=== PATIENT | female | born 1955 | race Caucasian/White ===

== ENCOUNTER 2018-02-28 12:52 | Inpatient (IN) | payer OTHER, MEDICARE ==
[2018-02-28 13:01] VITALS: BMI 17.6
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
[2018-02-28] MEDS ORDERED: ONDANSETRON 4 MG/2 ML VIAL IVPB ONE (13:22)
[2018-02-28] MEDS ORDERED: ACETAMINOPHEN 1000 MG/100 ML VIAL (NON FORMULARY) IVPB ONE (13:22)
[2018-02-28] MEDS ORDERED: SODIUM CHLORIDE 1,000 ML IV STA ×2 (13:22→15:25)
[2018-02-28] MEDS ORDERED: ONDANSETRON 4 MG/2 ML VIAL ONE ×2 (13:31→19:17)
[2018-02-28] MEDS ORDERED: ACETAMINOPHEN INJECTION 100 ML IVPB ONE (13:31)
[2018-02-28 14:09] LABS: EOS % 0.1 % (0-4.5)
[2018-02-28 14:17] LABS: ALBUMIN 4.4 g/dl (3.5-5.0); ALK PHOS 41 U/L (32-92); ANION GAP 13 MMOL/L (8-16); BILIRUBIN,TOTAL 1.8 mg/dl (0.2-1.0); BLOOD UREA NITROGEN 14 mg/dl (7-18); CALCIUM 9.3 mg/dl (8.4-10.2); CHLORIDE 92 mmol/L (98-107); CO2 23 mmol/L (22-28); CREATININE 0.7 mg/dl (0.6-1.3); GLUCOSE,RANDOM 76 mg/dl (74-106); POTASSIUM 3.2 mmol/L (3.5-5.1); SGOT/AST 17 U/L (10-42); SGPT/ALT 10 U/L (10-40); SODIUM 128 mmol/L (136-145); TOT PROT 6.6 g/dl (6.4-8.3)
[2018-02-28] MEDS ORDERED: morphine CARPU-JECT 2 MG/1 ML DISP.SYRIN IVPUSH ONE (14:27)
--- NOTE | 2018-02-28 14:27 | PDOC ---
Attending Attestation - Resident Resident Name: Sa Queenieira - ED Attending Attestation I have performed the following: I have examined & evaluated the patient, The case was reviewed & discussed with the resident, I agree w/resident's findings & plan - HPI HPI: 02/28/18 14:25 63-year-old female with history of intermittent right inguinal discomfort/ swelling presumed to be hernia related by her PCP Dr. Agosto in the past now presents with 3 days of persistent swelling and pain to the right inguinal region associated with intractable nausea/vomiting/inability to tolerate by mouth and decreased rectal output. No fevers or chills, mild generalized abdominal discomfort, no urinary complaints. - Physicial Exam PE: 02/28/18 14:26 Vital signs are within normal limits, afebrile well-appearing and pleasant, dry mucosa Heart is regular, lungs are clear Abdomen is soft and nondistended, discomfort to palpation throughout the lower abdomen greatest near the right lower quadrants, positive rebound but no guarding, palpable nonreducible right inguinal hernia that is tender, no overlying skin color change. No right upper quadrant tenderness, no right CVA tenderness - Medical Decision Making 02/28/18 14:27 63-year-old female with presentation concerning for incarcerated hernia, hemodynamically stable without evidence of sepsis or diffuse peritoneal findings. Check labs EKG IV fluid hydration, antiemetic, pain control CT of the abdomen and pelvis General surgery consult Admission 02/28/18 16:57 incarcerated hernia with SBO on CTAP. Admitted to [facility] with Surgery (Carlos Eduardo) consulted. OR team ready at [facility], arranging transfer to OR for Dr. Thibodeaux. IVF and K infusing via IV. Heart Score/ECG Review #1 ECG reviewed & interpreted by me at: 14:56 General ECG Interpretation: Sinus Rhythm, Normal Rate (69), Normal Intervals ( qtc 454), No acute ischemic changes (inf/lateral q waves without st/t changes)
[2018-02-28 14:29] LABS: BASO % 0.3 % (0-2.0); HEMATOCRIT 44.4 % (32.4-45.2); MCH 31.5 pg (25.7-33.7); MCHC 33.7 g/dl (32.0-36.0); MEAN CELL VOLUME 93.3 fl (80-96); MEAN PLT VOLUME 9.5 fl (7.5-11.1); MONO % 10.2 % (3.8-10.2); NEUT % 78.4 % (42.8-82.8); PLATELET COUNT 342 K/MM3 (134-434); RBC 4.76 M/mm3 (3.60-5.2); RDW 12.9 % (11.6-15.6); WHITE BLOOD COUNT 11.1 K/mm3 (4.0-10.8)
[2018-02-28 14:34] LABS: INR 1.06 (0.82-1.09); PROTHROMBIN TIME (PATIENT) 11.9 SEC (10.2-13.0)
[2018-02-28] MEDS ORDERED: morphine SULFATE 4 MG/ML VIAL ONE (14:48)
[2018-02-28] MEDS ORDERED: LIDOCAINE HCL 2% JELLY (5 ML/TUBE) ONE (15:41)
[2018-02-28] MEDS ORDERED: LIDOCAINE HCL 2% JELLY (30 ML/TUBE) TP ONE (15:42)
[2018-02-28] MEDS ORDERED: morphine CARPU-JECT 2 MG/1 ML DISP.SYRIN IVPUSH PRN ×2 (16:04→17:19)
[2018-02-28] MEDS ORDERED: ONDANSETRON 4 MG/2 ML VIAL IVPUSH PRN ×3 (16:04→22:21)
[2018-02-28] MEDS ORDERED: ACETAMINOPHEN 1000 MG/100 ML VIAL (NON FORMULARY) IVPB PRN ×4 (16:10→22:21)
[2018-02-28 16:21] LABS: URINE APPEARANCE Clear; URINE BILIRUBIN Negative (NEGATIVE); URINE COLOR Yellow; URINE GLUCOSE (UA) Negative (NEGATIVE); URINE KETONE 4+ (NEGATIVE); URINE LEUK ESTERASE 1+ (NEGATIVE); URINE NITRITE Negative (NEGATIVE); URINE PROTEIN Negative (NEGATIVE); URINE UROBILINOGEN 0.2 (0.2-1.0)
[2018-02-28] MEDS ORDERED: SODIUM CHLORIDE 0.9%/KCL 20 MEQ/1,000 ML INFUS.BAG IV SCH ×2 (16:30→22:15)
[2018-02-28 16:36] LABS: EPI CELLS FEW /HPF
[2018-02-28 16:37] LABS: URINE BACTERIA FEW /hpf (NEGATIVE)
[2018-02-28] MEDS ORDERED: KCL 10 MEQ IVPB 10 MEQ/100 ML INFUS.BAG IVPB ONE (16:47)
[2018-02-28] MEDS: KCL 10 MEQ IVPB 10 MEQ/100 ML INFUS.BAG IVPB SCH (16:58)
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
[2018-02-28] MEDS ORDERED: SODIUM CHLORIDE 1,000 ML IV ONE (17:13)
[2018-02-28] MEDS ORDERED: MIDAZOLAM HCL 2 MG/2 ML SINGLE DOSE VIAL ONE (18:35)
[2018-02-28] MEDS ORDERED: LIDOCAINE HCL/PF 2% SDV 5ML VIAL ONE (19:17)
[2018-02-28] MEDS ORDERED: DEXAMETHASONE SOD PHOSPHATE 4 MG/1 ML VIAL ONE (19:17)
[2018-02-28] MEDS ORDERED: ETOMIDATE 20 MG/10 ML AMPUL IVPUSH ONE (19:18)
[2018-02-28] MEDS ORDERED: ROCURONIUM BROMIDE 50 MG/5 ML VIAL ONE (19:20)
[2018-02-28] MEDS ORDERED: NEOSTIGMINE METHYLSULFATE 0.5 MG/ML - 10 ML MDV ONE (20:51)
[2018-02-28] MEDS ORDERED: GLYCOPYRROLATE 0.2 MG/1 ML VIAL ONE (20:52)
--- NOTE | 2018-02-28 21:46 | OP ---
Operative Note - Note: Operative Date: 02/28/18 Pre-Operative Diagnosis: incarcerated right inguinal hernia with small bowel obstruction Operation: incarcerated right femoral hernia repair Findings: right femoral hernia with incarcerated preperitoneal fat and hernia sac; inguinal ligament divided to access peritoneal cavity and examine small bowel - small knuckle of bowel wall identified as inflamed with transition point but viable (Campbell's hernia), no resection done; sac doubly ligated, excised, sent for path; ligament repaired and sewn to adjacent tissue Post-Operative Diagnosis: Other (incarcerated right femoral hernia with small bowel obstruction) Surgeon: Ian Thibodeaux Manufacturing Test Engineer: Tim Howard Anesthesiologist/COAL FEEDER OPERATOR: Atilio Sam Anesthesia: General Specimens Removed: hernia sac to pathology Estimated Blood Loss (mls): 5 Drains & Tubes with Location: Mijares removed at end of case, NGT preop Drains, Volume Out (mls): 450 (UOP) Fluid Volume Replaced (mls): 900 (crystalloid) Operative Report Dictated: Yes
[2018-02-28] MEDS ORDERED: IBUPROFEN 800 MG/8 ML IJ IVPB ONE ×2 (22:01→22:11)
[2018-02-28] MEDS ORDERED: MORPHINE SULFATE 2 MG/ML VIAL IVPUSH PRN (22:21)
[2018-03-01] MEDS: SODIUM CHLORIDE 0.9%/KCL 20 MEQ/1,000 ML INFUS.BAG IV SCH ×2 (00:32→04:58)
[2018-03-01] MEDS: KCL 10 MEQ IVPB 10 MEQ/100 ML INFUS.BAG IVPB SCH ×2 (02:02→02:03)
[2018-03-01] MEDS ORDERED: IBUPROFEN 800 MG/8 ML IJ IVPB PRN ×2 (06:00)
[2018-03-01 07:44] LABS: BASO % 0.1 % (0-2.0); HEMATOCRIT 35.6 % (32.4-45.2); HEMOGLOBIN 12.1 GM/dL (10.7-15.3); LYMPH % 5.6 % (8-40); MCH 31.4 pg (25.7-33.7); MEAN CELL VOLUME 92.6 fl (80-96); MEAN PLT VOLUME 9.1 fl (7.5-11.1); MONO % 11.2 % (3.8-10.2); NEUT % 83.1 % (42.8-82.8); PLATELET COUNT 255 K/MM3 (134-434); RBC 3.85 M/mm3 (3.60-5.2); RDW 13.4 % (11.6-15.6); WHITE BLOOD COUNT 10.5 K/mm3 (4.0-10.0)
[2018-03-01 07:51] LABS: ANION GAP 14 MMOL/L (8-16); BLOOD UREA NITROGEN 9 mg/dL (7-18); CALCIUM 7.6 mg/dL (8.5-10.1); CHLORIDE 109 mmol/L (98-107); CO2 20 mmol/L (21-32); CREATININE 0.3 mg/dL (0.55-1.02); GLUCOSE,RANDOM 78 mg/dL (74-106); PHOSPHOROUS 2.5 mg/dL (2.5-4.9); POTASSIUM 3.9 mmol/L (3.5-5.1); SODIUM 143 mmol/L (136-145)
[2018-03-01] MEDS ORDERED: PANTOPRAZOLE SODIUM 40 MG VIAL IVPB SCH (10:00)
--- NOTE | 2018-03-01 11:02 | PN ---
Progress Note, Physician Chief Complaint: s/p incarcerated hernia repair under general anesthesia History of Present Illness: post op day one - Current Medication List Current Medications: Active Medications Acetaminophen (Ofirmev Injection -) 1,000 mg IVPB Q6H PRN PRN Reason: PAIN LEVEL 4 - 6 Metronidazole (Flagyl 500mg Premixed Ivpb -) 500 mg in 100 mls @ 100 mls/hr IVPB Q8H-IV MERLY Stop: 03/01/18 18:59 Last Admin: 03/01/18 09:55 Dose: 100 mls/hr Levofloxacin (Levaquin 500 Mg Premixed Ivpb -) 500 mg in 100 mls @ 100 mls/hr IVPB ONCE ONE; Protocol Stop: 03/01/18 18:59 Potassium Chloride/Sodium Chloride (Ns+20 Meq Kcl -) 20 meq in 1,000 mls @ 125 mls/hr IV ASDIR MERLY Last Admin: 03/01/18 04:58 Dose: 125 mls/hr Ibuprofen (Caldolor Injection -) 600 mg IVPB Q6H PRN PRN Reason: PAIN LEVEL 6-10 Morphine Sulfate (Morphine Sulfate) 2 mg IVPUSH Q3H PRN PRN Reason: PAIN LEVEL 7 - 10 Ondansetron HCl (Zofran Injection) 4 mg IVPUSH Q4H PRN PRN Reason: NAUSEA - Objective Vital Signs: Vital Signs Temperature 98.2 F 03/01/18 06:55 Pulse Rate 92 H 03/01/18 06:55 Respiratory Rate 20 03/01/18 07:36 Blood Pressure 101/50 03/01/18 06:55 O2 Sat by Pulse Oximetry (%) 99 03/01/18 07:36 Constitutional: Yes: Well Nourished Cardiovascular: Yes: WNL Respiratory: Yes: WNL Gastrointestinal: Yes: WNL Labs: CBC, BMP 03/01/18 06:30 03/01/18 06:30 INR, PTT INR 1.06 (0.82-1.09) 02/28/18 13:27 Assessment/Plan no adverse effect from anesthetic, pain controlled, still npo, will sign off care at this time
[2018-03-01] MEDS ORDERED: MORPHINE SULFATE 2 MG/ML VIAL IVPUSH PRN (17:52)
--- NOTE | 2018-03-01 17:52 | PN ---
Progress Note, Physician Chief Complaint: R groin pain, bulge History of Present Illness: Pt s/p incarcerated right femoral hernia repair with associated SBO last night. Had trouble sleeping, but pain has been tolerable - had IV ibuprofen in PACU and once earlier today only. Has been up to bathroom, but not ambulating in halls yet, was out to chair. Using IS, gets ~1250ml. c/o dry eyes, requested artificial tears/eyedrops, which help. Thirsty and hungry. Labs are better this morning. Antibiotics done tonight. No flatus or BM yet, but no nausea, no distention. - Current Medication List Current Medications: Active Medications Acetaminophen (Ofirmev Injection -) 1,000 mg IVPB Q6H PRN PRN Reason: PAIN LEVEL 4 - 6 Artificial Tears (Artificial Tears) 1 drop OU Q6H PRN PRN Reason: DRY EYES Metronidazole (Flagyl 500mg Premixed Ivpb -) 500 mg in 100 mls @ 100 mls/hr IVPB Q8H-IV MERLY Stop: 03/01/18 18:59 Last Admin: 03/01/18 17:04 Dose: 100 mls/hr Levofloxacin (Levaquin 500 Mg Premixed Ivpb -) 500 mg in 100 mls @ 100 mls/hr IVPB ONCE ONE; Protocol Stop: 03/01/18 18:59 Potassium Chloride/Sodium Chloride (Ns+20 Meq Kcl -) 20 meq in 1,000 mls @ 125 mls/hr IV ASDIR MERLY Last Admin: 03/01/18 04:58 Dose: 125 mls/hr Ibuprofen (Caldolor Injection -) 600 mg IVPB Q6H PRN PRN Reason: PAIN LEVEL 6-10 Last Admin: 03/01/18 12:17 Dose: 600 mg Morphine Sulfate (Morphine Sulfate) 2 mg IVPUSH Q3H PRN PRN Reason: PAIN LEVEL 7 - 10 Ondansetron HCl (Zofran Injection) 4 mg IVPUSH Q4H PRN PRN Reason: NAUSEA - Objective Vital Signs: Vital Signs Temperature 98 F 03/01/18 16:15 Pulse Rate 68 03/01/18 16:15 Respiratory Rate 20 03/01/18 16:15 Blood Pressure 124/68 03/01/18 16:15 O2 Sat by Pulse Oximetry (%) 98 03/01/18 09:00 Constitutional: Yes: No Distress, Calm, Thin Eyes: Yes: Conjunctiva Clear, EOM Intact HENT: Yes: Atraumatic, Normocephalic, Other (NGT in place - clamped to itself at bedside) Cardiovascular: Yes: Regular Rate and Rhythm, Murmur Respiratory: Yes: Regular, CTA Bilaterally Gastrointestinal: Yes: Soft, Hypoactive Bowel Sounds, Tenderness (mild RLQ and incisional, no R/G). No: Distention Genitourinary: No: Mijares Present, Incontinence Musculoskeletal: Yes: Back Pain (chronic, and stiffness). No: Joint Swelling Extremities: Yes: Other (SCD's in place BLE). No: Cool, Cyanosis Integumentary: Yes: Incision (R groin, dressed). No: Jaundice, Rash Wound/Incision: Yes: Dressing Dry and Intact. No: Dressing Removed Neurological: Yes: Alert, Oriented Labs: CBC, BMP 03/01/18 06:30 03/01/18 06:30 Mg, Phos normal Na, Cl, K improved Problem List - Problems (1) Inguinal hernia of right side with obstruction and without gangrene Assessment/Plan: s/p right incarcerated femoral hernia repair with associated SBO overall doing well, no flatus yet continue NPO/IVF with ice chips and meds ok, clamped NGT pain meds prn - primarily nonnarcotic PO meds DVT prophylaxis periop antibiotics to finish tonight encourage IS/OOB/ambulation await resumption of bowel function likely NG out in am, clears when flatus with slow diet advancement Code(s): K40.30 - UNIL INGUINAL HERNIA, W OBST, W/O GANGR, NOT SPCF RECUR (2) Hypokalemia Assessment/Plan: resolved Code(s): E87.6 - HYPOKALEMIA (3) Dehydration Assessment/Plan: much improved, voiding ok will change to maintenance IV fluids ice chips/sips with meds allowed Code(s): E86.0 - DEHYDRATION (4) Nausea and vomiting Assessment/Plan: resolved NG clamped if ok in am, will likely d/c NGT Code(s): R11.2 - NAUSEA WITH VOMITING, UNSPECIFIED Qualifiers: Vomiting type: unspecified Vomiting Intractability: non-intractable Qualified Code(s): R11.2 - Nausea with vomiting, unspecified (5) Fibromyalgia affecting multiple sites Assessment/Plan: will resume home valium for HS tonight encourage nonnarcotic pain meds prn Code(s): M79.7 - FIBROMYALGIA
[2018-03-01] MEDS: ARTIFICIAL TEARS (POLYVINYL ALCOHOL) OPTH DROPS OU PRN (17:56)
[2018-03-01] MEDS: D5-1/2NS+20 MEQ KCL - 20 MEQ/1,000 ML INFUS.BAG IV SCH (18:19)
[2018-03-01] MEDS: IBUPROFEN 400 MG TABLET (FP) PO PRN (20:13)
[2018-03-01] MEDS ORDERED: diazePAM 5 MG TABLET PO SCH (22:00)
[2018-03-01] MEDS: ACETAMINOPHEN 325 MG TABLET (FP) PO PRN (23:46)
[2018-03-02] MEDS: D5-1/2NS+20 MEQ KCL - 20 MEQ/1,000 ML INFUS.BAG IV SCH (06:28)
[2018-03-02] MEDS: ARTIFICIAL TEARS (POLYVINYL ALCOHOL) OPTH DROPS OU PRN (10:07)
--- NOTE | 2018-03-02 16:29 | PATH ---
Surgical Pathology Report Patient Name: YUDELKA DURON Med. Rec. #: [id number] /Age/Gender: 1955 (Age: 63) / F Account: [id number] Location: [facility] MED/SURG Taken: 02/28/2018 Received: 03/01/2018 Reported: 03/02/2018 Physicians: Juvencio Hu M.D. Specimen(s) Received HERNIA SAC RIGHT FEMORAL HERNIA Clinical History Right incarcerated inguinal hernia with the small bowel obstruction Final Diagnosis RIGHT FEMORAL HERNIA, HERNIA SAC, EXCISION: CONSISTENT WITH HERNIA SAC. FOCAL ACUTE INFLAMMATION PRESENT AT THE ADJACENT ADIPOSE TISSUE. Electronically Signed Zack Bardales M.D. Gross Description Received in formalin labeled "hernia sac right femoral hernia," is a 5.5 x 3.3 x 2.0 cm burris-jalloh portion of fibroadipose tissue with attached fat, consistent with a hernia sac. Designer And Patternmaker sections are submitted in one cassette. /03/01/2018 [facility]/03/01/2018
--- NOTE | 2018-03-02 16:56 | PN ---
Progress Note, Physician Chief Complaint: R groin pain, bulge History of Present Illness: Pt s/p incarcerated right femoral hernia repair with associated SBO. Had trouble sleeping, but pain has been tolerable - not using po pain meds yet; has pain generalized in body and back, not just operative site. Has been up to bathroom, and ambulated in [place], is seen up in chair, examined in bed. Tolerated liquids earlier, milk and soup for lunch. Hungry. Passed flatus this morning, but no BM yet, no nausea, no distention. Pt reports a bad night with nightmare-like visualizations, poor if any sleep, feeling "like I have a mental illness," that "something is wrong in my head." She did take Valium last night. Not sure if her feelings are a holdover from anesthesia or not. - Current Medication List Current Medications: Active Medications Acetaminophen (Tylenol -) 650 mg PO Q6H PRN PRN Reason: PAIN LEVEL 4 - 6 Last Admin: 03/01/18 23:46 Dose: 650 mg Artificial Tears (Artificial Tears) 1 drop OU Q6H PRN PRN Reason: DRY EYES Last Admin: 03/02/18 10:07 Dose: 1 drop Diazepam (Valium -) 5 mg PO HS PRN PRN Reason: sleep Ibuprofen (Motrin -) 400 mg PO Q6H PRN PRN Reason: PAIN LEVEL 6-10 Last Admin: 03/01/18 20:13 Dose: 400 mg Lorazepam (Ativan -) 0.5 mg PO HS PRN PRN Reason: sleep Ondansetron HCl (Zofran Injection) 4 mg IVPUSH Q4H PRN PRN Reason: NAUSEA - Objective Vital Signs: Vital Signs Temperature 98.1 F 03/02/18 14:56 Pulse Rate 69 03/02/18 14:56 Respiratory Rate 18 03/02/18 14:56 Blood Pressure 135/74 03/02/18 14:56 O2 Sat by Pulse Oximetry (%) 100 03/02/18 10:00 Constitutional: Yes: No Distress, Calm, Thin Eyes: Yes: Conjunctiva Clear, EOM Intact HENT: Yes: Atraumatic, Normocephalic Cardiovascular: Yes: Regular Rate and Rhythm, Murmur Respiratory: Yes: Regular, CTA Bilaterally Gastrointestinal: Yes: Soft, Tenderness (mild RLQ/incisional). No: Distention, Hernia Extremities: No: Cool, Cyanosis Integumentary: Yes: Incision (R groin dressed). No: Jaundice, Rash Wound/Incision: Yes: [place] Intact, Dressing Dry and Intact, Dressing Removed ( small gauze and tape left over medial aspect, at red spot between meka) Neurological: Yes: Alert, Oriented Psychiatric: Yes: Alert, Oriented, Other (feeling sad (attended recent family ), not quite herself) Labs: no new labs Problem List - Problems (1) Inguinal hernia of right side with obstruction and without gangrene Assessment/Plan: POD2 s/p right incarcerated femoral hernia repair with associated SBO overall doing well, + flatus this am NG out this morning, tolerating liquids advance to diet for dinner pain meds prn - nonnarcotic PO meds DVT prophylaxis periop antibiotics done yesterday encourage IS/OOB/ambulation incision healing well, no s/s infection if tolerating diet in am, d/c home tomorrow Code(s): K40.30 - UNIL INGUINAL HERNIA, W OBST, W/O GANGR, NOT SPCF RECUR (2) Hypokalemia Assessment/Plan: resolved Code(s): E87.6 - HYPOKALEMIA (3) Dehydration Assessment/Plan: resolved Code(s): E86.0 - DEHYDRATION (4) Nausea and vomiting Assessment/Plan: resolved Code(s): R11.2 - NAUSEA WITH VOMITING, UNSPECIFIED Qualifiers: Vomiting type: unspecified Vomiting Intractability: non-intractable Qualified Code(s): R11.2 - Nausea with vomiting, unspecified (5) Fibromyalgia affecting multiple sites Assessment/Plan: mental state possibly secondary to valium? anesthesia persistent residual effects? consider shorter-acting benzo tonight for sleep first-line -- ativan ordered prn pt states she had bad reaction to Ambien in past and has never tried benadryl for sleep Code(s): M79.7 - FIBROMYALGIA
[2018-03-02] MEDS: IBUPROFEN 400 MG TABLET (FP) PO PRN (18:22)
[2018-03-02] MEDS ORDERED: diazePAM 5 MG TABLET PO PRN (22:00)
[2018-03-02] MEDS ORDERED: LORazepam 0.5 MG TABLET PO PRN (22:00)
[2018-03-03] MEDS: ACETAMINOPHEN 325 MG TABLET (FP) PO PRN (05:13)
[2018-03-03] MEDS ORDERED: PT OWN MED DRAWER 7, Y5N ONE (09:03)
--- NOTE | 2018-03-03 11:38 | DS ---
Physical Examination Vital Signs: Vital Signs Temperature 98.9 F 03/03/18 06:00 Pulse Rate 78 03/03/18 06:00 Respiratory Rate 18 03/03/18 06:00 Blood Pressure 113/71 03/03/18 06:00 O2 Sat by Pulse Oximetry (%) 100 03/02/18 21:00 Findings/Remarks: POD3 s/p incarcerated right femoral hernia repair with associated SBO. Pt seen and examined in room, ambulating, voided, sitting in chair. Tolerated dinner and breakfast. No nausea or fevers. Passing flatus, no BM quite yet, but feels almost ready. Pain managed with PO tylenol prn. Did not sleep well again last night. Did not take any benzo last night. Constitutional: Yes: No Distress, Calm, Thin Eyes: Yes: Conjunctiva Clear, EOM Intact HENT: Yes: Atraumatic, Normocephalic Cardiovascular: Yes: Regular Rate and Rhythm, Murmur Respiratory: Yes: Regular, CTA Bilaterally Gastrointestinal: Yes: Normal Bowel Sounds, Soft, Tenderness (minimal incisional only). No: Distention, Hernia Musculoskeletal: No: Joint Stiffness, Joint Swelling Extremities: No: Cool, Cyanosis Integumentary: Yes: Incision (R groin w/uma). No: Erythema, Rash Wound/Incision: Yes: Clean/Dry, Well Approximated, [place] Intact, Open to air, Dressing Removed (scant dried serous spot on gauze). No: Reddened Neurological: Yes: Alert, Oriented Psychiatric: Yes: Alert, Oriented Labs: no new labs Discharge Summary Reason For Visit: INCARCERATED RIGHT FEMORAL HERNIA WITH SBO Current Active Problems Dehydration (Acute) Femoral hernia of right side with obstruction and without gangrene (Acute) Fibromyalgia affecting multiple sites (Acute) Hypokalemia (Acute) Nausea and vomiting (Acute) Procedures: Principal: incarcerated right femoral hernia repair Hospital Course: 63yo F with fibromyalgia, scoliosis, multiple musculoskeletal issues, right groin hernia, presented to [facility] ER with 3 days of right groin bulge not going down, associated with pain and multiple episodes of N/V. Labs were significant for wbc 11, hypokalemia, hyponatremia, and dehydration. CT showed right groin hernia with loop of bowel and associated small bowel obstruction. She was given IV fluids, had NGT placed, and was transferred to [facility] for OR. At surgery, right femoral hernia was identified, with incarcerated hernia sac and preperitoneal fat; small bowel was eviscerated and examined revealing a mildly inflamed knuckle of bowel wall with transition point (Campbell 's hernia), which did not require resection and was returned to the abdomen, hernia sac ligated, and repair performed without mesh. She received perioperative Levofloxacin and Flagyl for 24 hours. NG was removed on morning of POD2, and she tolerated clears. Diet was advanced and tolerated. She is ambulating, voiding and passing flatus. Pain is controlled with po Tylenol and ibuprofen prn. Incision with uma is c/d/i. She had difficulty with sleeping every night, despite her usual dose of Valium on the night of POD1. She did not take a benzo last night, but still did not sleep much at all. She is discharged home with lifting restrictions to follow up in 2 weeks for staple removal. She will also follow up with PMD Dr. Jairo Esposito. Time spent on discharge: 35 minutes Condition: Good - Instructions Diet, Activity, Other Instructions: Postoperative instructions: You had a right incarcerated femoral hernia repair on 02/28/[address] Ian Thibodeaux of [facility]. Activity: Resume your usual activities gradually, but no heavy exertion or lifting more than 10-15 pounds for 4-6 weeks. You may shower daily, just pat the incision area dry. No bath or swimming until skin incisions have healed. Uma should not need to be recovered with any dressings, unless you have been told otherwise. Eat lightly at first, but advance to your usual diet as tolerated. Pain: For pain, you may use and alternate Tylenol (acetaminophen) 1-2 pills and/ or ibuprofen 200 mg (1-3 pills) every 6 hours each as needed; this means that you can take one OR the other at 3-hour intervals. Do not take more than 3000 mg of acetaminophen in a day. Take medications as prescribed or indicated on the labeling. Follow-up: Call Dr. Thibodeaux's office at [phone] to make your postop appointment (Tuesday in approximately 2 weeks after surgery as advised). Clinic is held in the [facility] on the first floor of [facility]. Call the office if you have: * increasing pain not responsive to pain medication * fever of 101F or higher * vomiting * unusual or increasing bleeding or drainage from wounds * increasing redness or swelling at wound sites Also, see your primary medical doctor within 1-2 weeks. Referrals: Evelyn Alcaraz MD [Primary Care Provider] - Disposition: HOME - Home Medications Comprehensive Discharge Medication List: Ambulatory Orders Diazepam [Valium] 5 mg PO HS 11/27/13 Acetaminophen [Tylenol .Regular Strength -] 650 mg PO Q6H PRN tablet 03/03/18 Ibuprofen [Motrin -] 400 mg PO Q6H PRN tablet 03/03/18
[2018-03-03] MEDS: IBUPROFEN 400 MG TABLET (FP) PO PRN (13:13)
[2018-03-03 13:58] VITALS: BP 157/87; PULSE 90; TEMP 97.9
== END 2018-03-03 15:05 | disposition home or self-care (01) | DRG 351 ==
LOC: FER 12:52 → JSAMEDAYSX 19:00 → J8W 23:07
PROVIDERS: ADMIT Surgery; ATTEND Surgery
PROC: 0YQ50ZZ Repair Right Inguinal Region, Open Approach (ICD-10-PCS; principal; 2018-02-28 18:30)
DX: K40.30 Unilateral inguinal hernia, with obstruction, without gangrene, not specified as recurrent (principal); E87.1 Hypo-osmolality and hyponatremia; E87.6 Hypokalemia; E86.0 Dehydration; M79.7 Fibromyalgia; R11.2 Nausea with vomiting, unspecified
CPT/HCPCS: 36415; 71045-TC-FY; 74177-TC; 80048; 80053; 81003; 81015; 83605; 83690; 83735; 84100; 85025; 85610; 85730; 86850; 86900; 86901; 88302-TC; 94760; 99285-25; J0131; J7030

== ENCOUNTER 2018-11-09 21:25 | Emergency (ER) | payer OTHER, MEDICARE ==
[2018-11-09 21:35] VITALS: BP 118/84; PULSE 68; TEMP 98.8; BMI 19.5
[2018-11-09] MEDS ORDERED: KETOROLAC TROMETHAMINE 30 MG/1 ML VIAL IVPUSH ONE (21:54)
[2018-11-09] MEDS ORDERED: KETOROLAC TROMETHAMINE 30 MG/1 ML VIAL ONE (21:57)
[2018-11-09] MEDS ORDERED: SODIUM CHLORIDE 1,000 ML IV SCH (22:00)
[2018-11-09 22:12] LABS: BASO % 0.4 % (0-2.0); EOS % 0.6 % (0-4.5); HEMATOCRIT 42.5 % (32.4-45.2); LYMPH % 9.5 % (8-40); MCH 30.9 pg (25.7-33.7); MEAN CELL VOLUME 93.6 fl (80-96); MONO % 5.3 % (3.8-10.2); NEUT % 84.2 % (42.8-82.8); PLATELET COUNT 366 K/MM3 (134-434); RBC 4.54 M/mm3 (3.60-5.2); WHITE BLOOD COUNT 10.5 K/mm3 (4.0-10.8)
[2018-11-09 22:21] LABS: ALBUMIN 4.3 g/dl (3.4-5.0); ALK PHOS 60 U/L (45-117); ANION GAP 16 MMOL/L (8-16); BILIRUBIN,TOTAL < 0.3 mg/dl (0.2-1); BLOOD UREA NITROGEN 14 mg/dl (7-18); CALCIUM 9.9 mg/dl (8.5-10); CHLORIDE 98 mmol/L (98-107); CO2 26 mmol/L (21-32); CREATININE 0.8 mg/dl (0.55-1.3); GLUCOSE,RANDOM 110 mg/dl (74-106); POTASSIUM 3.7 mmol/L (3.5-5.1); SGOT/AST 21 U/L (15-37); SGPT/ALT 13 U/L (13-61); SODIUM 140 mmol/L (136-145); TOT PROT 6.9 g/dl (6.4-8.2)
[2018-11-10] MEDS ORDERED: MAGNESIUM CITRATE 300 ML BOTTLE PO ONE (00:43)
--- NOTE | 2018-11-10 00:44 | PDOC ---
Documentation entered by Joe Cantrell SCRIBE, acting as scribe for Paul Reyna MD. Paul Reyna MD: This documentation has been prepared by the Tamia larose Juan Manue, SCRIBE, under my direction and personally reviewed by me in its entirety. I confirm that the documentation accurately reflects all work, treatment, procedures, and medical decision making performed by me. History of Present Illness - General Chief Complaint: Pain, Acute Stated Complaint: ABDOMINAL PAIN History Source: Patient, Old Records Exam Limitations: No Limitations - History of Present Illness Initial Comments: 11/09/18 22:00 The patient is a 63 year old female brought via EMS, who presents to the ED complaining of right upper quadrant pain onset today. She notes that she ate pizza today around 7pm and went to sleep. She awoke with the pain. She describes her pain as moderate, rating it a 8/10 in severity. She denies any other symptoms. The patient denies chest pain, shortness of breath, headache and dizziness. Denies fever, chills, nausea, vomiting, diarrhea or constipation. Denies dysuria , frequency, urgency and hematuria. PAST MEDICAL HISTORY: HLD PAST SURGICAL HISTORY: Hernia repair, SBO, Right Rotator Cuff Repair, scoliosis repair FAMILY HISTORY: no pertinent history SOCIAL HISTORY: Pt lives with family and is employed. MEDICATIONS: reviewed ALLERGIES: As per nursing notes General: No fevers or chills, no weakness, no weight loss HEENT: No change in vision. No sore throat,. No ear pain CardioVascular: No chest pain or shortness of breath Respiratory:No cough, or wheezing. Gastrointestinal: (+) Abdominal pain. no nausea, vomiting, diarrhea or constipation, No rectal bleeding Genitourinary: No dysuria, hematuria, or frequency Musculoskeletal: No joint or muscle pain or swelling Neurologic: No headache, vertigo, dizziness or loss of consciousness Psychiatric: nor depression Skin: No rashes or easy bruising Endocrine: no increased thirst or abnormal weight change Allergic: no skin or latex allergy All other systems reviewed and normal General: Well-nourished well-developed individual, no acute distress HEENT: Throat: Normal, tonsils normal, no erythema or exudate Neck: Supple, no meningeal signs, no lymphadenopathy Eyes::Pupils equal reactive and round, extraocular motion intact Chest: Nontender to palpation Cardiac: S1-S2 normal, regular rate and rhythm, no murmurs rubs or gallops Respiratory: Lungs clear to auscultation bilateral Abdomen: (+) Mild to moderate tenderness to palpation right upper quadrant. Soft , nondistended, normal bowel sounds. Extremities: Warm, dry, no cyanosis, clubbing, or edema Skin: No rashes Neuro: Alert and oriented x3, nonfocal exam, grossly intact, normal gait Psych: Normal mood and affect 11/10/18 00:41 Assessment and plan: This is a 63-year-old female who comes in complaining of upper abdominal pain. Workup was obtained including CBC, comp, lipase, CAT scan, ultrasound. Her cup was essentially unremarkable with no acute pathology intra-abdominally. Patient was noted to have a large amount of constipation as well as some gallstones but no evidence of cholecystitis. Patient was given mag citrate and discharged home. 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) Cardiac Disorders: No CVA: No COPD: No CHF: No DVT: No Dementia: No Diabetes: No GI Disorders: Yes (incarcerated hernia) Disorders: No HTN: No Hypercholesterolemia: Yes Liver Disease: No Seizures: No Thyroid Disease: No - Surgical History Abdominal Surgery: No Appendectomy: No Cardiac Surgery: No Cholecystectomy: No Lung Surgery: No Neurologic Surgery: No Orthopedic Surgery: Yes (Right Rotator Cuff Repair, scoliosis repair) - Suicide/Smoking/Psychosocial Hx Smoking History: Never smoked Have you smoked in the past 12 months: No Hx Alcohol Use: No Drug/Substance Use Hx: No Substance Use Type: None Hx Substance Use Treatment: No *Physical Exam - Vital Signs Last Vital Signs Temp Pulse Resp BP Pulse Ox 98.8 F 68 18 118/84 98 11/09/18 21:30 11/09/18 21:30 11/09/18 21:30 11/09/18 21:30 11/09/18 21:30 ED Treatment Course - LABORATORY CBC & Chemistry Diagram: 11/09/18 21:55 11/09/18 21:55 - ADDITIONAL ORDERS Additional order review: Laboratory Results 11/09/18 11/09/18 11/09/18 23:00 21:55 21:55 Sodium Potassium Chloride Carbon Dioxide Anion Gap BUN Creatinine Est GFR (CKD-EPI)AfAm Est GFR (CKD-EPI)NonAf Random Glucose Calcium Total Bilirubin AST ALT Alkaline Phosphatase Creatine Kinase 78 Troponin I Total Protein Albumin Lipase 152 Urine Color Yellow Urine Appearance Clear Urine pH 7.5 Urine Protein Negative Urine Glucose (UA) Negative Urine Ketones Negative Urine Blood Negative Urine Nitrite Negative Urine Bilirubin Negative Urine Urobilinogen 0.2 Ur Leukocyte Esterase Negative 11/09/18 11/09/18 21:55 21:55 Sodium 140 Potassium 3.7 Chloride 98 Carbon Dioxide 26 Anion Gap 16 BUN 14 Creatinine 0.8 Est GFR (CKD-EPI)AfAm 90.30 Est GFR (CKD-EPI)NonAf 77.91 Random Glucose 110 H Calcium 9.9 Total Bilirubin < 0.3 AST 21 ALT 13 Alkaline Phosphatase 60 Creatine Kinase Troponin I < 0.03 Total Protein 6.9 Albumin 4.3 Lipase Urine Color Urine Appearance Urine pH Urine Protein Urine Glucose (UA) Urine Ketones Urine Blood Urine Nitrite Urine Bilirubin Urine Urobilinogen Ur Leukocyte Esterase 11/09/18 21:55 RBC 4.54 MCV 93.6 MCHC 33.0 RDW 13.0 MPV 9.0 Neutrophils % 84.2 H Lymphocytes % 9.5 Monocytes % 5.3 Eosinophils % 0.6 Basophils % 0.4 - RADIOLOGY Radiology Studies Ordered: Category Date Time Status ABDOMEN & PELVIS CT W/O CONTR [CT] Stat CT Scan 11/09/18 23:41 Taken GALLBLADDER US [US] Stat Ultrasound 11/09/18 21:52 Completed - Medications Given in the ED: ED Medications Discontinued Medications Generic Name Dose Route Start Last Admin Trade Name Freq PRN Reason Stop Dose Admin Ketorolac Tromethamine 30 mg 11/09/18 21:54 11/09/18 22:01 Toradol Injection - IVPUSH 11/09/18 21:55 30 mg ONCE ONE Administration *DC/Admit/Observation/Transfer Diagnosis at time of Disposition: Constipation Qualifiers: Constipation type: slow transit constipation Qualified Code(s): K59.01 - Slow transit constipation - Discharge Dispostion Disposition: HOME Condition at time of disposition: Stable Decision to Admit order: No - Prescriptions Prescriptions: Metoprolol Succinate 50 mg PO DAILY #30 tab.er.24h - Referrals - Patient Instructions Additional Instructions: Tomorrow drink the mag citrate that we gave you and it will help with your constipation. Return to the emergency department immediately with ANY new, persistent or worsening symptoms. Continue any medications as previously prescribed by your physician. You should follow up with your primary doctor as soon as possible regarding today's emergency department visit. . Please make sure your doctor reviews the results of your emergency evaluation. Thank you for coming to the Emergency Department today for your care. It was a pleasure to see you today. Please note that your evaluation is INCOMPLETE until you follow-up with your doctor. - Post Discharge Activity - Attestations Scribe Attestion: 11/09/18 22:00 Documentation prepared by Joe Cantrell, acting as medical staff physician for Paul Reyna MD
[2018-11-10] MEDS ORDERED: MAGNESIUM CITRATE 300 ML BOTTLE ONE (00:46)
--- NOTE | 2018-11-10 14:38 | EKG ---
Test Reason : Blood Pressure : / mmHG Vent. Rate : 064 BPM Atrial Rate : 064 BPM P-R Int : 162 ms QRS Dur : 082 ms QT Int : 424 ms P-R-T Axes : 061 072 066 degrees QTc Int : 437 ms NORMAL SINUS RHYTHM CANNOT RULE OUT ANTERIOR INFARCT (CITED ON OR BEFORE 28-FEB-2018) CANNOT RULE OUT INFERIOR INFARCT , AGE UNDETERMINED ABNORMAL ECG WHEN COMPARED WITH ECG OF 28-FEB-2018 14:56, NO SIGNIFICANT CHANGE WAS FOUND Confirmed by MERYL HIDALGO MD ([id number]) on 11/10/2018 2:37:42 PM Referred By: DR HARRIS Confirmed By:MERYL HIDALGO MD
== END 2018-11-10 01:06 | disposition home or self-care (01) ==
LOC: FER 21:25
PROC: 3E0333Z Introduction of Anti-inflammatory into Peripheral Vein, Percutaneous Approach (ICD-10-PCS; principal; 2018-11-09)
PROC: 3E0337Z Introduction of Electrolytic and Water Balance Substance into Peripheral Vein, Percutaneous Approach (ICD-10-PCS; 2018-11-09)
DX: K59.01 Slow transit constipation (principal)
CPT/HCPCS: 36415; 74176-TC; 76705-TC; 80053; 81003; 82550; 83690; 84484; 85025; 93005; 99283-25; J7030